=== PATIENT | female | born 1975 | race Caucasian/White ===

== ENCOUNTER → 2018-07-19 | Outpatient (CLI) | payer OTHER ==
--- NOTE | 2018-07-19 10:39 | XR ---
EXAMINATION TYPE: XR knee complete RT DATE OF EXAM: 07/19/2018 COMPARISON: None HISTORY: Pain following fall TECHNIQUE: Three-view right knee FINDINGS: No acute fractures are evident. Joint spaces are preserved. Minimal degenerative type spurr ing is at the medial femoral condyle lateral tibial plateau. There may be a small joint effusion. Follow-up exam can be performed 7-10 days from acute trauma for continued pain. IMPRESSION: 1. No acute osseous abnormality right knee. 2. Suggestion of a small joint effusion
== END | disposition home or self-care (01) ==
LOC: RADXRMAIN 10:08
PROVIDERS: ATTEND Emergency Medicine
DX: S80.01XA Contusion of right knee, initial encounter (principal)

== ENCOUNTER → 2018-08-31 | Outpatient (CLI) | payer SELFPAY ==
--- NOTE | 2018-08-31 13:04 | CONS ---
CONSULTATION DATE OF SERVICE: 08/31/2018 This 42-year-old lady has been evaluated in sleep center for possible obstructive sleep apnea-hypopnea syndrome by referring from [facility] for DOT exam. Patient is a high school music director. HISTORY OF PRESENT ILLNESS/SLEEP WAKE EVALUATION: Patient usual sleep schedule on working days from 8:30 p.m. to 3:30 a.m. and on days off from 10 p.m. until 6 a.m. Sometimes she has problems with falling asleep. Has TV set in bedroom. She usually sleeps on the stomach position or side position. Prefers not to sleep on the back. She wakes up from sleep once. According to patient she does not snore and once she wakes up she has episodes of nocturia. The patient does not complain on any excessive daytime sleepiness. [place] Sleepiness Scale is 1. She does not take any naps. No history of hypnagogic hallucinations, sleep paralysis or cataplexy. PAST MEDICAL HISTORY: Negative. PAST SURGICAL HISTORY: Tonsillectomy, tubal ligation, and D and C. MEDICATIONS: None. SOCIAL HISTORY: Negative for smoking. Alcohol consumption occasional. FAMILY HISTORY: Hypertension, sinus problems, bronchitis, pneumonia, headaches. REVIEW OF SYSTEMS: Basically negative. PHYSICAL EXAMINATION: During physical exam, a lady without distress. VITAL SIGNS: BP 133/82, HR 76, RR 17, height 5 feet 3 inches, weight 237.2, body index 41.9, oxygen saturation at room air 98%, temperature 98.4. HEENT: PERRLA, EOMI. Oropharynx Mallampati 3. Slight restriction of nasal breathing. NECK: Supple, no JVD. Thyroid is not palpable. LUNGS: Clear to percussion and to auscultation. Good air exchange. No wheezing or rhonchi. HEART: S1, S2 regular. No murmurs, gallops, or rubs. ABDOMEN: Obese. EXTREMITIES: No clubbing or cyanosis. FIELD CONTACT PERSON: Awake, alert, and oriented X3. Cranial nerves 2 to 7 intact. There is no fasciculation or atrophy. noted. No focal deficits observed. IMPRESSION: 1. Awakenings from sleep with nocturia moderately low position of soft palate. Rule out obstructive sleep apnea-hypopnea syndrome. 2. Obesity, body mass index 41.9. 3. Status post tonsillectomy. 4. Status post tubal ligation. 5. Status post D and C. PLAN: 1. Sleep study for evaluation of patient breathing during the sleep. 2. CPAP/BiPAP titration if sleep study confirms obstructive sleep apnea-hypopnea syndrome. 3. Preferable position during sleep on the side. 4. No driving if patient feels any sleepiness. 5. I will see patient for follow up visit to explain results of testing and following plan. Thank you very much for referring this patient for consultation. Sincerely, Brenton Berger MD, PhD, FAASM Diplomat of [employer] Plasma Etcher of [facility] [place] MMODL / IJN: [id number] /
== END | disposition home or self-care (01) ==
LOC: SLEEP 11:35
PROVIDERS: ATTEND Internal Medicine
DX: R35.1 Nocturia (principal); E66.9 Obesity, unspecified; Z68.41 Body mass index [BMI] 40.0-44.9, adult; Z98.51 Tubal ligation status; Z90.09 Acquired absence of other part of head and neck; Z98.890 Other specified postprocedural states
CPT/HCPCS: 99211

== ENCOUNTER → 2018-10-20 | Outpatient (CLI) | payer SELFPAY ==
--- NOTE | 2018-10-20 12:01 | SFUN ---
SLEEP CENTER FOLLOW UP NOTE DATE OF SERVICE: 10/20/2018 A 42-year-old lady who has been followed in the Sleep Center to discuss results for home sleep apnea test. I discussed results of home sleep apnea test with the patient in details. Analyzing time 6 hours, 43 minutes. Respiratory channel showed 115 hypopneas with total apnea-hypopnea index 17.1 with oxygen saturation to 65%. Oxygen level was below 90% for 47.2% of the time and below 85% for 6.5% of the time. According to patient, she did not sleep all night when she did home sleep apnea test, but we checked with the records of the home sleep apnea test and that time when she slept it was documented that oxygen came down the normal range. Pulse rate in the range between 29 and 114 by computer calculation. [place] Sleepiness Scale today is 1. PHYSICAL EXAM: Patient in no distress. BP 159/74, HR 86, RR 16, temperature 98.1, weight 225, height 5.3, body mass index 59.8, oxygen saturation at room air 97%. OROPHARYNX: Low position of soft palate, Mallampati 3. ABDOMEN: Obese. Neck Supple, no JVD. Thyroid is not palpable. LUNGS Clear to percussion and to auscultation. Good air exchange. No wheezing or rhonchi. HEART S1, S2 regular. No murmurs, gallops, or rubs. EXTREMITIES No clubbing or cyanosis. MEDICAL SCIENTIFIC LIAISON Awake, alert, and oriented X3. Cranial nerves 2 to 7 intact. There is no fasciculation or atrophy. noted. No focal deficits observed. IMPRESSION: 1. Obstructive sleep apnea-hypopnea syndrome in moderate range by results of home sleep apnea test with oxygen desaturation to 65%. 2. Obesity. 3. Status post tonsillectomy. 4. Status post tubal ligation. 5. Status post D and C. 6. Patient is a associate school psychologist. PLAN: 1. CPAP, if necessary BiPAP titration. Will check for oxygen level during the titration. 2. Losing weight. 3. Sleep hygiene with regular time in bed for at least 8 hours. 4. No driving if feeling sleepiness. Thank you very much for allowing me to participate in the management of your patient. Sincerely, Brenton Berger MD, PhD, FAASM Diplomat of [place] [employer] [employer] Grievance Manager of [facility] [place] MMMARK / QUYEN: [id number] /
== END ==
LOC: SLEEP 10:21
PROVIDERS: ATTEND Internal Medicine
DX: G47.33 Obstructive sleep apnea (adult) (pediatric) (principal); E66.9 Obesity, unspecified; Z90.89 Acquired absence of other organs; Z98.890 Other specified postprocedural states; Z99.89 Dependence on other enabling machines and devices